=== PATIENT | female | born 1945 | race Caucasian/White ===

== ENCOUNTER 2019-04-14 16:22 | Emergency (ER) | payer MEDICARE, BC ==
[~2019-04-14] VITALS: Ht 162.6 cm; Wt 70.0 kg
[~2019-04-14 16:22] MED LIST: ADV50100 IH; ALBU18HF2 IH; ASPI-1009 PO; ATOR10TA87 PO; LORA0.5T PO; METH4TAB PO; SYN0.025T PO
[2019-04-14 16:28] VITALS: BP 173/81
[2019-04-14] MEDS ORDERED: ipratropium/albuterol 3ml nebule NEB ONE (17:10)
[2019-04-14] MEDS ORDERED: METH4TAB81 PO (17:23)
[2019-04-14] MEDS ORDERED: AZIT250T83 PO (17:23)
== END 2019-04-14 17:54 | disposition home or self-care (01) ==
LOC: ER 16:23
DX: J44.1 Chronic obstructive pulmonary disease with (acute) exacerbation (principal); E78.00 Pure hypercholesterolemia, unspecified; E03.9 Hypothyroidism, unspecified; Z79.899 Other long term (current) drug therapy; Z88.0 Allergy status to penicillin; Z88.1 Allergy status to other antibiotic agents; Z88.8 Allergy status to other drugs, medicaments and biological substances; Z79.82 Long term (current) use of aspirin; Z79.2 Long term (current) use of antibiotics; Z90.49 Acquired absence of other specified parts of digestive tract
CPT/HCPCS: 71046; 94640; 94760; 99283